=== PATIENT | male | born 1965 | race African-American/Black ===

== ENCOUNTER → 2021-10-06 | Outpatient (CLI) | payer OTHER ==
--- NOTE | 2021-10-06 13:47 | Diagnostic Imaging Report ---
INDICATION: Right elbow pain. TIME OF EXAM: 1:27 PM. TECHNIQUE: Three views of the right elbow were obtained. FINDINGS: The alignment is normal. No fracture, dislocation, or effusion is seen. IMPRESSION: No acute bony abnormality is detected. Dictated by: Dictated on workstation # [id number]
--- NOTE | 2021-10-06 13:47 | Diagnostic Imaging Report ---
INDICATION: Right knee pain. TIME OF EXAM: 1:32 PM. TECHNIQUE: Three views of the right knee were obtained. FINDINGS: There is some mild medial compartmental joint space narrowing. There is some spurring of the tibial spines as well as some mild patellofemoral degenerative change. No fracture, dislocation, or effusion is seen. IMPRESSION: Degenerative changes. No acute bony abnormality is detected. Dictated by: Dictated on workstation # [id number]
--- NOTE | 2021-10-06 13:48 | Diagnostic Imaging Report ---
INDICATION: Left knee pain. TIME OF EXAM: 1:37 PM. TECHNIQUE: Three views of the left knee were obtained. FINDINGS: The joint spaces are fairly well-maintained. There is some spurring of the tibial spines as well as along the posterior surface of the patella. No fracture, dislocation, or effusion is seen. IMPRESSION: Mild degenerative changes. No acute bony abnormality is detected. Dictated by: Dictated on workstation # [id number]
--- NOTE | 2021-10-06 13:51 | Diagnostic Imaging Report ---
INDICATION: Left elbow pain. TIME OF EXAM: 1:29 PM. TECHNIQUE: Three views of the left elbow were obtained. FINDINGS: The alignment is normal. The joint spaces are well-maintained. No fracture, dislocation, or effusion is identified. IMPRESSION: No acute abnormality is identified. Dictated by: Dictated on workstation # [id number]
== END ==
LOC: RAD FS 13:01
DX: Z01.89 Encounter for other specified special examinations (principal); M17.0 Bilateral primary osteoarthritis of knee; M25.522 Pain in left elbow; M25.521 Pain in right elbow
CPT/HCPCS: 73080; 73562

== ENCOUNTER → 2021-10-08 | Outpatient (CLI) | payer OTHER | LOC: ORTHO 13:03 | PROVIDERS: ATTEND Orthopaedic Surgery | DX: M67.823 Other specified disorders of tendon, right elbow (principal); M67.824 Other specified disorders of tendon, left elbow | CPT/HCPCS: 99203 ==

== ENCOUNTER → 2021-11-19 | Outpatient (CLI) | payer OTHER ==
--- NOTE | 2021-11-19 11:51 | Diagnostic Imaging Report ---
PROCEDURE: US carotid duplex, bilateral. TECHNIQUE: Multiple real-time grayscale images were obtained over the carotid arteries in various projections, bilaterally. Additional spectral analysis and color Doppler duplex images were also obtained. INDICATION: Hypertension and vertigo. FINDINGS: There are no focally elevated velocities in either internal carotid artery. The ICA/CCA ratios are within normal limits, bilaterally. There is antegrade flow in the vertebral arteries, bilaterally. Grayscale images demonstrate minimal carotid plaque, bilaterally. IMPRESSION: Minimal bilateral carotid plaque however spectral analysis shows no evidence of a hemodynamically significant stenosis in either internal carotid artery. Parameters based on the consensus panel Lindsey-Scale and Doppler ultrasound criteria published January 2003, Radiology, Volume 229. DOPPLER (peak systolic velocity M/S Right Left CCA 1.18 1.21 ICA Proximal .53 .74 ICA Mid .63 .95 ICA Distal .89 .59 RATIO .76 .79 ECA 1.03 .66 VERT .43 .59 Dictated by: Dictated on workstation # [id number]
== END ==
LOC: RAD FS 09:21
PROVIDERS: ATTEND Family Medicine
DX: R42 Dizziness and giddiness (principal); I10 Essential (primary) hypertension
CPT/HCPCS: 93880

== ENCOUNTER → 2021-12-30 | Outpatient (CLI) | payer OTHER ==
[2021-12-30 13:29] VITALS: BP 152/107
--- NOTE | 2021-12-30 13:55 | Cardiology Stress Test Report ---
Stress Test Report Date of Procedure/Referring: Date of Procedure: Dec 30, 2021 PCP Raji Hameed MD Admitting Physician Admitting Physician: Attending Physician: Raji Hameed MD Indications: HTN Baseline Heart Rate: 86 Baseline Blood Pressure: Blood Pressure Systolic: 152 Blood Pressure Diastolic: 107 Baseline EKG: Baseline EKG: NSR Summary/Conclusion: Summary: In summary, the patient started exercising with a baseline heart rate, blood pressure and EKG mentioned above Patient was able to exercise for a total of 6 minutes on Jorge protocol, METs 7.3 Maximum heart rate 144 Maximum blood pressure 214/107 Stress EKG, Minimal nondiagnostic changes Recovery EKG , Return to baseline Conclusion: 1. Good exercise tolerance for a total of 6 minutes on Jorge protocol, 7.3 METs, achieving 87 percent of maximum expected heart rate 2. Minimal nondiagnostic EKG changes with exercise returned to baseline during recovery 3. Occasional PVCs noted at peak stress level and early in recovery, patient had one ventricular couplet. 4. Severe hypertensive response to exercise with peak blood pressure 214/107 re turn to baseline during recovery Copy Copies To 1: [facility]/CASSIE SEBASTIAN MD Dec 30, 2021 13:55
== END ==
LOC: CARD 14:00
PROVIDERS: ATTEND Family Medicine
DX: I10 Essential (primary) hypertension (principal)
CPT/HCPCS: 93017

== ENCOUNTER 2022-03-05 22:19 | Emergency (ER) | payer OTHER ==
[2022-03-05 22:22] VITALS: BP 151/99
--- NOTE | 2022-03-05 22:27 | ED Lower Extremity ---
General Chief Complaint: Lower Extremity Stated Complaint: L FOOT PAIN Source: patient Exam Limitations: no limitations History of Present Illness Date Seen by Provider: Mar 05, 2022 Time Seen by Provider: 22:21 Initial Comments 56-year-old male coming in after he felt like he stepped wrong 2 days ago now with left lateral foot pain. Has not taken anything for the pain, worse with walking, better with rest. It is mild to moderate, throbbing in nature. Denies any significant trauma to it. Otherwise denying any other acute complaints. Allergies and Home Medications Allergies Coded Allergies: Senidkn-ADM-QrO Reductase Inhibitor (Verified Allergy, Unknown, 03/05/22) Patient Home Medication List Home Medication List Reviewed: Yes Review of Systems Constitutional: No fever EENTM: no symptoms reported Respiratory: no symptoms reported Cardiovascular: no symptoms reported Gastrointestinal: no symptoms reported Genitourinary: no symptoms reported Musculoskeletal: see HPI Skin: no symptoms reported Psychiatric/Neurological: No Symptoms Reported All Other Systems Reviewed Negative Unless Noted: Yes Past Bxhtefj-Rnlsew-Ihunyj Hx Patient Social History Tobacco Use?: No Substance use?: No Alcohol Use?: No Past Medical History Surgeries: Yes Orthopedic Physical Exam Vital Signs Vital Signs - First Documented 03/05/22 22:22 Pulse 65 Resp 16 B/P (MAP) 151/99 (116) Pulse Ox 99 O2 Delivery Room Air Capillary Refill : Height, Weight, BMI Height: '" Weight: lbs. oz. kg; BMI Method: General Appearance: WD/WN, no apparent distress HEENT: PERRL/EOMI, normal ENT inspection, pharynx normal Neck: non-tender, full range of motion, supple, normal inspection Cardiovascular: regular rate, rhythm, no edema, no murmur Respiratory: chest non-tender, lungs clear, normal breath sounds, no respiratory distress, no accessory muscle use Gastrointestinal: normal bowel sounds, non tender, soft; No guarding Hips: bilateral hip non-tender, bilateral hip normal inspection, bilateral hip normal range of motion, bilateral hip no evidence of injury Legs: bilateral leg non-tender, bilateral leg normal inspection, bilateral leg normal range of motion, bilateral leg no evidence of injury Knees: bilateral knee non-tender, bilateral knee normal inspection, bilateral knee normal range of motion, bilateral knee no evidence of injury Ankles: bilateral ankle non-tender, bilateral ankle normal inspection, bilateral ankle normal range of motion, bilateral ankle no evidence of injury Feet: right foot non-tender; bilateral foot normal inspection, bilateral foot normal range of motion, bilateral foot no evidence of injury; left foot bone tenderness (Mid fifth metatarsal with minimal tenderness, no tenderness at the base of the fifth, no Lisfranc tenderness) Neurologic/Tendon: normal sensation, normal tendon functions Neurologic/Psychiatric: no motor/sensory deficits, alert, normal mood/affect Skin: normal color, warm/dry Lymphatic: no adenopathy Progress/Results/Core Measures Results/Orders My Orders Orders - HANSEL BUSTAMANTE MD Foot 3 View Left (03/05/22 22:24) Vital Signs/I&O 03/05/22 22:22 Pulse 65 Resp 16 B/P (MAP) 151/99 (116) Pulse Ox 99 O2 Delivery Room Air Progress Progress Note : Progress Note 56-year-old male with above history coming in due to left foot pain after stepping incorrectly and feeling pain. ABCs were intact and vitals were stable on presentation. Physical exam with left lateral foot tenderness, mostly over the midportion of the fifth metatarsal. There does appear to be a defect on the x-ray of the foot on my interpretation, no clear fracture line, unclear if this is chronic or acute. Patient does have an x-ray of his left foot on his phone which I have reviewed. I do not see the defect on the image from 2018. Given the tenderness there, we will place him in a postop shoe and have him follow-up with his PCP in 2 weeks for repeat x-ray. Offered him Tylenol but he states he does not want pain medicine at this time. Diagnostic Imaging Diagonstic Imaging: Xray (left foot) Departure Impression Primary Impression: Fracture of 5th metatarsal Qualified Codes: S92.355A - Nondisplaced fracture of fifth metatarsal bone, left foot, initial encounter for closed fracture Disposition: 01 HOME, SELF-CARE Condition: Stable Departure-Patient Inst. Decision time for Depature: 23:00 Referrals: ROBERTO MISTRY MD (PCP) Primary Care Physician ARIAN RAUSCH MD (Family) Primary Care Physician Patient Instructions: Foot Fracture ED Add. Discharge Instructions: I suspect you do have a minor fracture that is nondisplaced in your left foot and the fifth metatarsal which is the lateral part of her foot where we are talking about. Stay in the postop shoe when you are walking around, okay to take it off when you are bathing or just around the house. Take Tylenol or ibuprofen as needed for pain. I do recommend going to your regular doctor and having a repeat x-ray in 2 weeks to see if there is any healing that would prove if there was a fracture. Work/School Note: Work Release Form Date Seen in the Emergency Department: Mar 05, 2022 Return to Work: Mar 07, 2022 Restrictions: No Restrictions HANSEL BUSTAMANTE MD Mar 05, 2022 22:27
--- NOTE | 2022-03-06 07:23 | Diagnostic Imaging Report ---
INDICATION: left lateral foot pain after twisting. TECHNIQUE: 3 views of the left foot CORRELATION STUDY: None FINDINGS: Internal fixation hardware including plate and pins over the 1st tarsometatarsal articulation. There is a medial angulation at the joint. There appears be bony fusion across the base of the 1st and 2nd metatarsals. Additionally, interrupted pins across the 1st MTP joint, likely fractured. No bony fusion across the MTP joint which is mildly narrowed. Arthrodesis hardware at the talus and calcaneus with fusion across the subtalar joint. There is cortical defect along the lateral aspect at the proximal 5th metatarsal shaft. Age of this fracture is indeterminate. IMPRESSION: 1. Nondisplaced subtle fracture through the lateral cortex proximal 5th metatarsal. Age indeterminate. 2. Findings compatible with previous injury and internal fixation of the medial foot and hind foot. Called to Catherine at 7:13 a.m. by marcus. Dictated by: Dictated on workstation # [id number]
== END 2022-03-05 23:19 | disposition home or self-care (01) ==
LOC: EDUNIT# 22:19 → ER FS 22:21
DX: S92.352A Displaced fracture of fifth metatarsal bone, left foot, initial encounter for closed fracture (principal); Z28.310 Unvaccinated for COVID-19; W22.8XXA Striking against or struck by other objects, initial encounter; Y93.01 Activity, walking, marching and hiking
CPT/HCPCS: 73630

== ENCOUNTER 2022-04-02 05:28 | Outpatient (CLI) | payer OTHER ==
[~2022-04-02] VITALS: Ht 168 cm; Wt 96.0 kg
[2022-04-06] MEDS ORDERED: FLUT9.9S NS (10:36)
== END 2022-04-06 16:49 | disposition home or self-care (01) ==
LOC: PREOP 05:28
PROVIDERS: ATTEND Podiatrist Foot & Ankle Surgery
DX: Z01.818 Encounter for other preprocedural examination (principal)

== ENCOUNTER 2022-04-09 10:03 | Day surgery (SDC) | payer OTHER ==
[~2022-04-09] VITALS: Ht 168 cm; Wt 96.0 kg
[2022-04-09] VITALS (10 sets, daily range): BP systolic 129–150; BP diastolic 66–96
[~2022-04-09 10:03] MED LIST: FLUT9.9S NS
[2022-04-09] MEDS ORDERED: BUPIVACAINE 0.5% 30 ML (SENSORCAINE) VIAL ONE (10:08)
[2022-04-09] MEDS ORDERED: LIDOCAINE 1% INJ 20 ML VIAL ONE (10:08)
[2022-04-09] MEDS ORDERED: ONDANSETRON 4 MG/2 ML (SDV) Z0FRAN ONE (10:28)
[2022-04-09] MEDS ORDERED: proPOfol 200 MG/20 ML (DIPRIVAN) VIAL IV ONE (10:28)
[2022-04-09] MEDS ORDERED: MIDAZOLAM 2 MG/2 ML (VERSED) VIAL ONE (10:28)
[2022-04-09] MEDS ORDERED: LIDOCAINE PF 2% 5 ML (XYLOCAINE) VIAL ONE (10:28)
[2022-04-09] MEDS ORDERED: SEVOFLURANE (ULTANE) 15 ML INHAL SOLN ONE ×2 (10:28→13:24)
[2022-04-09] MEDS ORDERED: fentaNYL INJ 100 MCG/2 ML AMP ONE (10:28)
[2022-04-09] MEDS ORDERED: ceFAZolin INJECTION 1,000 MG in NS (IVPB) 50 ML IV ONE (10:30)
[2022-04-09] MEDS: LACTATED RINGERS 1,000 ML IV PRN ×2 (11:11→13:12)
--- NOTE | 2022-04-09 11:18 | Progress Note-Pre Operative ---
Pre-Operative Progress Note Date of Available H&P: Apr 09, 2022 Date H&P Reviewed: Apr 09, 2022 Time H&P Reviewed: 11:18 Pre-Operative Diagnosis: Fracture left 5th metatarsal PILI RICE DPSohail Apr 09, 2022 11:18
[2022-04-09] MEDS ORDERED: HYDROmorphone 2 MG/ML VIAL (DILAUDID) ONE (13:05)
[2022-04-09] MEDS ORDERED: KETOROLAC 30 MG/ML VIAL ONE (13:14)
[2022-04-09] MEDS ORDERED: HYDROmorphone 2 MG/ML VIAL (DILAUDID) IV ONE (13:30)
[2022-04-09] MEDS ORDERED: ONDANSETRON 4 MG/2 ML (SDV) Z0FRAN IVP PRN (13:30)
--- NOTE | 2022-04-09 13:32 | Progress Note-Post Operative ---
Post-Operative Progess Note Surgeon (s)/Youth Leader (s) Surgeon PILI RICE DPM Youth Leader: none Pre-Operative Diagnosis Fracture left 5th metatarsal Post-Operative Diagnosis same Procedure & Operative Findings Date of Procedure 04/09/22 Procedure Performed/Findings ORIF of left 5th metatarsal fracture Anesthesia Type general Estimated Blood Loss Estimated blood loss (mL): minimal Specimens/Packing Specimens Removed none PILI RIEC DPM Apr 09, 2022 13:32
[2022-04-09] MEDS ORDERED: ACHD5005 PO (13:34)
[2022-04-09] MEDS ORDERED: CEPH500C PO (13:34)
[2022-04-09] MEDS ORDERED: HYDROcodone/APAP 5 MG/325 MG (LORTAB) TAB PO PRN (13:45)
[2022-04-09] MEDS ORDERED: LACTATED RINGERS 1,000 ML IV SCH (13:45)
--- NOTE | 2022-04-09 14:12 | Diagnostic Imaging Report ---
IndiCATION: Postoperative evaluation COMPARISON: 03/05/2022. TECHNIQUE: 2 radiographs of the left foot dated 04/09/2022. FINDINGS: Interval postsurgical changes with placement of a partially cannulated screw transfixing a proximal 5th metatarsal shaft fracture. Alignment appears essentially anatomic without evidence of immediate hardware complication. Extensive postsurgical changes including osteotomy and fusion of the 1st TMT joint is noted, appearing similar to the prior examination. Hindfoot fusion is also noted. No evidence of hardware complication. No new fracture or dislocation. No destructive osseous process. No suspicious radiopaque foreign body. Splint is in place. IMPRESSION: Interval internal fixation of previously noted fracture involving the proximal shaft of the 5th metatarsal without evidence of hardware complication. Additional stable post surgical changes of a hindfoot fusion and postsurgical changes involving the medial foot. Dictated by: Dictated on workstation # [id number]
--- NOTE | 2022-04-09 14:53 | Physical Therapy Ortho Eval ---
PT Orthopedic Evaluation Type of Surgery ORIF of left 5th metatarsal fracture Prior Level of Function Current Living Status: Spouse Locomotion (Upon Admit): Independent Established Durable Medical Eq: None Subjective Subjective Patient in bed pre tx, agrees to PT, has no complaints of pain, states his foot is still pretty numb. Patient has a splint on his left leg with kathrine wrap. Entry Into Home: Stairs With Railing Steps Into Home: 1 Motor Control Motor Control: Motor Control WNL Transfer SCALE: Activities may be completed with or without assistive devices. 8-Augmzdkoka-qallzhz completes the activity by him/herself with no assistance from a helper. 5-Set-up or Clean-up Assistance-helper sets up or cleans up; patient completes activity. Ernul assists only prior to or following the activity. 4-Supervision or Touching Assistance-helper provides verbal cues and/or touching/steadying and/or contact guard assistance as patient completes activity. Assistance may be provided throughout the activity or intermittently. 3-Partial/Moderate Assistance-helper does LESS THAN HALF the effort. Ernul lifts, holds or supports trunk or limbs, but provides less than half the effort. 2-Substantial/Maximal Assistance-helper does MORE THAN HALF the effort. Ernul lifts or holds trunk or limbs and provides more than half the effort. 2-Meskmulna-lukpnu does ALL the effort. Patient does none of the effort to complete the activity. Or, the assistance of 2 or more helpers is required for the patient to complete the activity. If activity was not attempted, code reason: 7-Patient Refused. 9-Not Applicable-not attempted and the patient did not perform the activity before the current illness, exacerbation or injury. 10-Not Attempted due to Environmental Limitations-(lack of equipment, weather restraints, etc.). 88-Not Attempted due to Medical Conditions or Safety Concerns. Transfers (B, C, W/C) (QC): 4 Gait Right Lower Extremity: Right Weight Bearing Status RLE: Full Weight Bearing Left Lower Extremity: Left Weight Bearing Status LLE: Non Weight Bearing Summary/Comments Patient ambulated 60' with a rolling walker with CGA, including up and down 1 step, needed cues for foot placement and safety on step and cues for step length during ambulation, patient was compliant with NWB on the left let. Treatment Rendered Treatment: Therapeutic Exercises, Gait Train, Step Train Exercise Instruction: Quad Sets, Heel Slides Assessment/Goals Goal Time Frame: 1 Visit Understands HEP: Yes Safe Ambulation: Yes Plan Treatment Plan: Discharge PT/Family Agrees to Plan: Yes Time Time In: 1430 Time Out: 144 Total Billed Treatment Time: 12 Billed Treatment Time 1 visit [place] 12' SOTO HOOD PT Apr 09, 2022 14:53
--- NOTE | 2022-04-10 02:27 | OPERATIVE REPORT ---
DATE OF SERVICE: 04/09/2022 SURGEON: Melany Rice DPM PREOPERATIVE DIAGNOSIS: Fractured left fifth metatarsal. POSTOPERATIVE DIAGNOSIS: Fractured left fifth metatarsal. PROCEDURE: Open reduction and internal fixation of left fifth metatarsal fracture. WOUND CLASS: Clean. ANESTHESIA: General. HEMOSTASIS: Pneumatic thigh tourniquet at 300 mmHg. INDICATIONS: This 56-year-old male presents complaining of a fracture of the left fifth metatarsal. The patient is unsatisfactory with the healing process of the fifth metatarsal. Risks and complications were discussed with conservative and surgical options and he is agreeable to surgical options after discussion. He is willing to proceed. DESCRIPTION OF PROCEDURE: The patient was brought back to the operating room table and placed in secure supine position. Appropriate timeout was performed. A pneumatic thigh tourniquet was placed on the left lower extremity over several layers padding. The left foot was anesthetized utilizing 10 mL of 1:1 mixture of 1% Xylocaine and 0.5% Marcaine injected in local infusion to the left fifth metatarsal base area. The left foot was then prepped and draped in normal sterile manner. The left foot was then elevated and allowed to exsanguinate after which the tourniquet was inflated to 300 mmHg. Attention was then directed to the lateral aspect of the left fifth metatarsal proximal diaphysis to the cuboid area. This was approximately 5 cm longitudinal linear incision was deepened in the same plane with great care to identify and retract all vital neurovascular structures when necessary. Blood vessels were cauterized as encountered. The incision was deepened down to the proximal diaphysis of the left fifth metatarsal. The subperiosteal dissection was carried out after which the fracture was identified and fenestrated utilizing a 1 mm drill. Next, dissection was carried out to the fifth metatarsal base where utilizing the [place] 28 cannulated screw system, a 4.5 cannulated screw of 15 mm length was driven down from proximal to distal along the medullary canal with the partial threaded portion of the screw distal to the fractured fragment. Excellent bony apposition and fixation was appreciated and confirmed with a C-arm. The wound was flushed with copious amounts of normal saline throughout the procedure. Closure was then performed in layers. Deep closure was performed with 3-0 Vicryl, superficial with 4-0 Vicryl, skin closed with 4-0 Prolene in a horizontal mattress type stitch. Postoperative injection consisted of 10 mL of 0.5% Marcaine injected in a local infusion to the surgical site. Postoperative dressing was Betadine-soaked Adaptic, sterile 4 x 4's, sterile Kerlix, Sof-Rol, posterior splint over ABDs and the bony prominences secured with an Yonatan wrap. The patient tolerated the anesthesia and procedure well and was transported from the operating room to the recovery room with vital signs stable and vascular status intact to all digits of the left foot. He is given instructions to be nonweightbearing with crutches or walker. He is to follow up in my office in 10 days' period of time. He was given a prescription for Keflex and Vicodin. Job ID: [id number] DocumentID: [id number] Dictated Date: 04/09/2022 13:40:00 Gaming Cage Worker Date: 04/10/2022 02:24:00 Dictated By: MELANY RICE DPM
--- NOTE | 2022-04-13 15:31 | Anesthesia-General Post-Op ---
General Patient Condition Mental Status/LOC: Same as Preop Cardiovascular: Satisfactory Nausea/Vomiting: Absent Respiratory: Satisfactory Pain: Controlled Complications: Absent Post Op Complications Complications None Follow Up Care/Instructions Patient Instructions None needed. Anesthesia/Patient Condition Patient Condition Patient is doing well, no complaints, stable vital signs, no apparent adverse anesthesia problems. No complications reported per nursing. D/C home per [facility] [place]: Yes SARBJIT VACA CRNA Apr 13, 2022 15:31
== END 2022-04-09 15:15 | disposition home or self-care (01) ==
LOC: SDC 10:03
PROVIDERS: ATTEND Podiatrist Foot & Ankle Surgery
DX: S92.352A Displaced fracture of fifth metatarsal bone, left foot, initial encounter for closed fracture (principal); X58.XXXA Exposure to other specified factors, initial encounter; Z28.310 Unvaccinated for COVID-19; E66.01 Morbid (severe) obesity due to excess calories; Z68.34 Body mass index [BMI] 34.0-34.9, adult; G47.33 Obstructive sleep apnea (adult) (pediatric)
CPT/HCPCS: 73620; 87081